=== PATIENT | male | born 2000 | race Caucasian/White ===

== ENCOUNTER 2018-04-16 15:41 | Emergency (ER) | payer MEDICAID, OTHER ==
[2018-04-16 15:42] VITALS: BMI 19.6
[2018-04-16] MEDS ORDERED: Iohexol 240 (50 ml) ONE (16:26)
[2018-04-16] MEDS: Sodium Chloride 0.9% 1,000 ML IV STA (16:34)
[2018-04-16] MEDS: Iohexol 240 (50 ml) PO ONE (16:35)
--- NOTE | 2018-04-16 16:40 | ED PDOC ---
HPI: Male Pain Time Seen by Provider: 04/16/18 16:05 Chief Complaint (Nursing): GI Problem Chief Complaint (Provider): left testicular pain History Per: Patient History/Exam Limitations: no limitations Onset/Duration Of Symptoms: Days (x3) Current Symptoms Are (Timing): Still Present Associated Symptoms: denies: Fever, Chills, Nausea, Vomiting, Diarrhea, Back Pain, Urinary Symptoms Additional Complaint(s): Jayy Garcia is a 18 year old male, with no significant past medical history, who presents to the emergency department complaining of left testicular pain onset for x3 days. Patient had an inguinal hernia repair in 2013 done at [facility] and states symptoms feels similar. He reports pain is worst with movement. He denies any nausea, vomit, diarrhea, abdominal pain, constipation, back pain, fever, chills, urinary symptoms, chest pain, shortness of breath, cough, congestion, headache, numbness or tingling. No further medical complaints. PMD: None provided. Past Medical History Reviewed: Historical Data, Nursing Documentation, Vital Signs Vital Signs: Last Vital Signs Temp 98.8 F 04/16/18 15:55 Pulse 98 H 04/16/18 15:55 Resp 18 04/16/18 15:55 BP 92/59 L 04/16/18 15:55 Pulse Ox 99 04/16/18 15:55 - Medical History PMH: No Chronic Diseases Denies: Depression - Surgical History Surgical History: Hernia Repair - Family History Family History: States: Unknown Family Hx - Social History Current smoker - smoking cessation education provided: Yes (light smoker <10 cigarettes daily) Alcohol: None Drugs: Denies - Home Medications Home Medications: Ambulatory Orders Medication Instructions Recorded Ciprofloxacin HCl [Cipro] 500 mg PO BID 7 Days tab 04/16/18 Ibuprofen [Motrin] 600 mg PO TID 7 Days tab 04/16/18 Metronidazole [Flagyl] 500 mg PO TID 7 Days tablet 04/16/18 - Allergies Allergies/Adverse Reactions: Allergies Allergy/AdvReac Type Severity Reaction Status Date / Time No Known Allergies Allergy Verified 12/21/12 23:25 Review of Systems ROS Statement: Except As Marked, All Systems Reviewed And Found Negative Constitutional: Negative for: Fever, Chills ENT: Negative for: Nose Congestion Cardiovascular: Negative for: Chest Pain Respiratory: Negative for: Cough, Shortness of Breath Gastrointestinal: Negative for: Nausea, Vomiting, Abdominal Pain, Diarrhea, Constipation Genitourinary Male: Positive for: Scrotal Pain (left testicular pain). Negative for: Dysuria, Frequency Musculoskeletal: Negative for: Back Pain Neurological: Negative for: Numbness (tingling), Headache Physical Exam - Reviewed Nursing Documentation Reviewed: Yes Vital Signs Reviewed: Yes - Physical Exam Appears: Positive for: No Acute Distress Head Exam: Positive for: ATRAUMATIC, NORMAL INSPECTION, NORMOCEPHALIC Skin: Positive for: Normal Color, Warm, Dry Eye Exam: Positive for: Normal appearance, EOMI, PERRL Neck: Positive for: Painless ROM, Supple Cardiovascular/Chest: Positive for: Regular Rate, Rhythm. Negative for: Murmur Respiratory: Positive for: Normal Breath Sounds. Negative for: Respiratory Distress Gastrointestinal/Abdominal: Positive for: Soft, Tenderness (Left lower abdominal area) Male Genital Exam: Positive for: inguinal tenderness (tenderness to left groin), testicular tenderness (L) (Mild tenderness to left testicle), other (Normal cremasteric reflex. ED chief engineer production EDUARDO Harding). Negative for: scrotum tenderness (R), scrotum tenderness (L) (No scrotal sac tenderness or edema), testicular t enderness (R) Back: Positive for: Normal Inspection. Negative for: L CVA Tenderness, R CVA Tenderness, Vertebral Tenderness Extremity: Positive for: Normal ROM (upper and lower extremities). Negative for: Deformity, Swelling Neurologic/Psych: Positive for: Alert, Oriented - Laboratory Results Result Diagrams: 04/16/18 16:51 04/16/18 16:51 Interpretation Of Abn Labs: no acute - ECG O2 Sat by Pulse Oximetry: 99 (RA) Pulse Ox Interpretation: Normal - Progress ED Course And Treament: 704: Stable. AAOx3. Pain free. Tolerated PO. Fu with pcp. Medical Decision Making Medical Decision Making: Time: 16:05 Initial Impression: Initial Plan: --Abd Pelvis PO & IV Contrast [CT] --CMP --Urine Dipstick --CBC w/ differential --Sodium Chloride 1,000 ml IV 1,000 mls/hr --Omnipaque 240 50 ml PO --Toradol 15 mg IVP --Testes Duplex Complete [US] --Reevaluation 17:33 US Testes FINDINGS: RIGHT TESTICLE: Measures 4.9 x 2.5 x 2.9 cm. Normal echotexture and flow. RIGHT EPIDIDYMIS: Epididymal head measures 0.8 x 0.5 x 0.7 cm. Grossly unremarkable appearance with normal flow. LEFT TESTICLE: Measures 4.2 x 2.3 x 3.0 cm. Normal echotexture and flow. There are scattered microcalcifications. LEFT EPIDIDYMIS: Epididymal head measures 0.6 x 0.8 x 0.3 cm. Grossly unremarkable appearance with normal flow. HYDROCELE: None. VARICOCELE: There is a left varicocele. OTHER FINDINGS: None. IMPRESSION: No evidence for testicular mass, torsion or epididymal orchitis. Left varicocele. Scattered microcalcifications in the left testicle, if the patient is high risk for cancer appropriate follow-up is advised. ----- Scribe Attestation: Documented by Sanjeev Le, acting as a scribe for Monroe Olmedo MD. Provider Scribe Attestation: All medical record entries made by the Scribe were at my direction and personally dictated by me. I have reviewed the chart and agree that the record accurately reflects my personal performance of the history, physical exam, medical decision making, and the department course for this patient. I have also personally directed, reviewed, and agree with the discharge instructions and disposition. Disposition - Clinical Impression Clinical Impression: Enteritis, Varicocele - Patient ED Disposition Is Patient to be Admitted: No Counseled Patient/Family Regarding: Studies Performed, Diagnosis, Need For Follo wup, Rx Given - Disposition Referrals: Oliverio Ibarra MD, PhD [Staff Provider] - 04/17/18 [facility] [Outside] - 04/17/18 Disposition: Routine/Home Disposition Time: 19:06 Condition: STABLE Additional Instructions: Return if not better in 3 days. Prescriptions: Ciprofloxacin HCl [Cipro] 500 mg PO BID 7 Days tab Ibuprofen [Motrin] 600 mg PO TID 7 Days tab Metronidazole [Flagyl] 500 mg PO TID 7 Days tablet Instructions: Varicocele, Acute Abdomen (Belly Pain) Forms: [facility] (I[place]ic), [facility] ED School/Work Excuse
[2018-04-16 17:02] LABS: BASO # 0.1 K/uL (0.0-0.2); BASO % 1.2 % (0.0-2.0); EOS # 0.1 K/uL (0.0-0.7); HEMOGLOBIN 13.3 g/dL (12.0-18.0); LYMPH # 2.6 K/uL (1.0-4.3); LYMPH % 56.1 % (20.0-40.0); MEAN CELL VOLUME 89.7 fl (80.0-94.0); MEAN CORPUSCULAR HEMOGLOBIN 30.1 pg (27.0-31.0); MEAN CORPUSCULAR HGB CONC 33.5 g/dL (33.0-37.0); MEAN PLATELET VOLUME 6.8 fl (7.2-11.7); MONO # 0.3 K/uL (0.0-0.8); NEUT # 1.6 K/uL (1.8-7.0); NEUT % 33.7 % (50.0-75.0); RBC 4.42 Mil/uL (4.40-5.90); RED CELL DISTRIBUTION WIDTH 13.4 % (11.5-14.5); WHITE BLOOD COUNT 4.7 K/uL (4.8-10.8)
[2018-04-16 17:06] LABS: ALB/GLOB RATIO 1.4 (1.0-2.1); ALBUMIN 4.2 g/dL (3.5-5.0); ALT/SGPT 32 U/L (21-72); AST/SGOT 20 U/L (17-59); BLOOD UREA NITROGEN 8 mg/dl (9-20); CALCIUM 9.3 mg/dL (8.4-10.2); GFR NON-AFRICAN AMERICAN > 60
--- NOTE | 2018-04-16 17:37 | US ---
Date of service: 04/16/2018 HISTORY: testicular pain TECHNIQUE: Realtime sonography through the scrotum with color and doppler flow. COMPARISON: None Available. FINDINGS: RIGHT TESTICLE: Measures 4.9 x 2.5 x 2.9 cm. Normal echotexture and flow. RIGHT EPIDIDYMIS: Epididymal head measures 0.8 x 0.5 x 0.7 cm. Grossly unremarkable appearance with normal flow. LEFT TESTICLE: Measures 4.2 x 2.3 x 3.0 cm. Normal echotexture and flow. There are scattered microcalcifications. LEFT EPIDIDYMIS: Epididymal head measures 0.6 x 0.8 x 0.3 cm. Grossly unremarkable appearance with normal flow. HYDROCELE: None. VARICOCELE: There is a left varicocele. OTHER FINDINGS: None. IMPRESSION: No evidence for testicular mass, torsion or epididymal orchitis. Left varicocele. Scattered microcalcifications in the left testicle, if the patient is high risk for cancer appropriate follow-up is advised.
[2018-04-16] MEDS ORDERED: Iohexol 300 100 ML IJ ONE (17:41)
[2018-04-16] MEDS ORDERED: Sodium Chloride 0.9% 50 ML IV ONE (17:41)
--- NOTE | 2018-04-16 18:38 | CT ---
Date of service: 04/16/2018 PROCEDURE: CT Abdomen and Pelvis with contrast HISTORY: Abdominal pain COMPARISON: None. TECHNIQUE: CT scan of the abdomen and pelvis was performed after administration of intravenous contrast. Oral contrast was administered. Coronal and sagittal reformatted images were obtained. Contrast dose: 90 mL Omnipaque 300 Radiation dose: Total exam DLP = 226.41 mGy-cm. This CT exam was performed using one or more of the following dose reduction techniques: Automated exposure control, adjustment of the mA and/or kV according to patient size, and/or use of iterative reconstruction technique. FINDINGS: LOWER THORAX: The visualized lungs are clear. LIVER: Normal in size with homogeneous enhancement. No gross lesion or ductal dilatation. GALLBLADDER AND BILE DUCTS: The gallbladder is contracted. PANCREAS: Normal in size with homogeneous enhancement. No gross lesion or ductal dilatation. SPLEEN: Normal in size and appearance. ADRENALS: No discrete nodule. KIDNEYS AND URETERS: Normal in size with homogeneous enhancement. No hydronephrosis. No solid mass. VASCULATURE: No aortic aneurysm. BOWEL: There is segmental circumferential mural thickening in the proximal jejunal loops. The mid and distal small bowel loops are normal in caliber. There is moderate amount of stool in the colon. No evidence of bowel dilatation or obstruction. APPENDIX: Normal appendix. PERITONEUM: No free fluid. No free air. LYMPH NODES: No enlarged lymph nodes. BLADDER: The urinary bladder is grossly normal in appearance.. REPRODUCTIVE: Unremarkable. BONES: No acute fracture. OTHER FINDINGS: None. IMPRESSION: Segmental circumferential mural thickening in the proximal jejunum is nonspecific and could be related to nonspecific enteritis. No evidence for bowel obstruction. No CT evidence for acute appendicitis. No other significant abnormality.
[2018-04-16 19:21] VITALS: BP 106/74; PULSE 78; RESP 16; TEMP 98; O2SAT 100
== END 2018-04-16 19:15 | disposition home or self-care (01) ==
LOC: H.ER 15:41
DX: I86.1 Scrotal varices (principal); K52.9 Noninfective gastroenteritis and colitis, unspecified; F17.210 Nicotine dependence, cigarettes, uncomplicated
CPT/HCPCS: 74177; 80053; 85025; 93975; 96374; 99283; J1885; J7030; Q9966; Q9967